=== PATIENT | female | born 2000 | race Caucasian/White ===

== ENCOUNTER 2019-11-23 21:23 | Emergency (ER) | payer OTHER ==
[~2019-11-23] VITALS: Ht 162.6 cm; Wt 65.4 kg
[2019-11-23 23:37] VITALS: BP 132/71
== END 2019-11-23 23:37 | disposition home or self-care (01) ==
LOC: ED 21:23
DX: S20.211A Contusion of right front wall of thorax, initial encounter (principal); J45.909 Unspecified asthma, uncomplicated; V49.9XXA Car occupant (driver) (passenger) injured in unspecified traffic accident, initial encounter; Y93.89 Activity, other specified; Y92.89 Other specified places as the place of occurrence of the external cause; Y99.8 Other external cause status
CPT/HCPCS: J1885